=== PATIENT | male | born 1995 | race Caucasian/White ===

== ENCOUNTER 2023-11-10 13:44 | Emergency (ER) | payer OTHER, SELFPAY ==
[2023-11-10 14:50] LABS: Bilirubin Small (Negative); Blood, Urine Small (Negative); Glucose, Urine (Dipstick) Negative (Negative); Ketone, Urine > or equal to 80 mg/dL (Negative); Leukocyte Negative (Negative); Nitrite Negative (Negative); Protein, Urine (Dipstick) 100 mg/dL (Neg-Trace)
[2023-11-10 14:51] LABS: Clarity Hazy (Clear)
[2023-11-10 15:02] LABS: Bacteria/HPF Rare-Few HPF (None Seen); CAUTI Indications for Culture Alt mental st,lethar; Mucous/LPF Few LPF (<2+); RBC/HPF 0-3 HPF (0-3); Squamous Epithelial 0-3 HPF (0-3); WBC/HPF None Seen HPF (0-3)
[2023-11-10 15:03] LABS: Urine Culture Reflex No No
[2023-11-10] MEDS ORDERED: Dicyclomine 20 MG/2 ML VIAL ONE (15:21)
[2023-11-10] MEDS ORDERED: Thiamine HCl 200 MG/2 ML VIAL ONE (15:22)
[2023-11-10] MEDS ORDERED: Dextrose 5 %-0.45 % NaCl 1,000 ML ONE (15:22)
[2023-11-10] MEDS ORDERED: Folic Acid 5 MG/ML MDV ONE (15:22)
[2023-11-10] MEDS ORDERED: Multivit, Adult Inj 10 ML VIAL ONE (15:22)
[2023-11-10] MEDS ORDERED: Pantoprazole 40 MG VIAL ONE (15:22)
[2023-11-10] MEDS ORDERED: Ondansetron PF 4 MG/2 ML Vial ONE (15:31)
[2023-11-10 15:32] LABS: Prothrombin Time 12.7 sec (12.0-14.7)
[2023-11-10 15:33] LABS: PTT 25.4 sec (22.9-36.1)
[2023-11-10 15:34] LABS: Hematocrit 55.4 % (42.0-52.0); Hemoglobin 17.6 g/dL (14.0-18.0); Mean Corpuscular HGB CONC 31.8 g/dL (32.0-36.0); Mean Corpuscular Hemoglobin 29.3 pg (27.0-31.0); Mean Corpuscular Volume 92.2 fl (78.0-98.0); Mean Platelet Volume 8.7 fL (7.4-10.4); Platelet Count 254 10x3/uL (130-400); RBC Distribution Width 12.6 % (11.5-14.5); Red Blood Cell (RBC) Count 6.01 mill/uL (4.70-6.10); White Blood Cell (WBC) Count 7.3 10x3/uL (4.8-10.8)
[2023-11-10 15:42] LABS: Acetaminophen Less than 10 mcg/mL (Less than 10); Alcohol 376.3 mg/dL (Less than 10); Salicylate Less than 8.0 mg/dL (Less than 8.0)
[2023-11-10 15:43] LABS: Band 5 % (5-11); Lymphocytes 10 % (21-51); MDiff Complete? YES; Manual Diff?? YES; Metamyelocyte 1 % (0-0); Monocytes 3 % (0-10); Neutrophil 74 % (42-75); Reactive Lymphocytes 7 % (0-10)
[2023-11-10 15:44] LABS: ALT (SGPT) 222 U/L (8-55); AST (SGOT) 335 U/L (5-34); Albumin 4.8 g/dL (3.5-5.0); Alkaline Phosphatase 73 U/L (40-110); Anion Gap 27 mmol/L (10-20); BUN (Urea Nitrogen) 7 mg/dL (8.9-20.6); Bilirubin, Total 0.8 mg/dL (0.2-1.2); Calc. Creatinine Clearance 0 mL/min (70-130); Carbon Dioxide 22 mmol/L (22-29); Chloride 94 mmol/L (98-107); Estimated GFR 118; Globulin 3.4 g/dL (2.4-3.5); Glucose 86 mg/dL (70-105); Platelet Adequacy Comment Appears Adequate; Potassium 4.2 mmol/L (3.5-5.1); Protein, Total 8.2 g/dL (6.0-8.3); RBC Morph Comment Within Normal Limits; Sodium 139 mmol/L (136-145)
[2023-11-10 15:46] LABS: Amphetamine Not Detected (NotDetected); Barbiturates Screen Not Detected (NotDetected); Benzodiazepine Screen Not Detected (NotDetected); Cocaine Metabolite Screen Not Detected (NotDetected); Methadone Not Detected (NotDetected); Methamphetamine Not Detected (NotDetected); Opiate Screen Not Detected (NotDetected); Oxycodone Screen Not Detected (NotDetected); Phencyclidine (PCP) Not Detected (NotDetected); THC/Cannabinoid Screen Not Detected (NotDetected); Tricyclic Screen Not Detected (NotDetected)
[2023-11-10] MEDS ORDERED: Sodium Chloride 0.9% 1,000 ML ONE (17:42)
[2023-11-10] MEDS ORDERED: Promethazine HCl 25 MG/ML VIAL ONE (17:42)
[2023-11-11] MEDS ORDERED: Lorazepam 1 MG TAB ONE (02:17)
== END 2023-11-11 05:08 | disposition short-term general hospital (02) ==
LOC: MADERS 13:44
DX: F10.129 Alcohol abuse with intoxication, unspecified (principal); K70.10 Alcoholic hepatitis without ascites; Y90.6 Blood alcohol level of 120-199 mg/100 ml
CPT/HCPCS: 80053; 80306; 80307; 81001; 84443; 85025; 85610; 85730; 96365; 96366; 96368; 96372; 96375; J2405; J2470; J2550; J3411; J7030; J7042